=== PATIENT | male | born 1975 | race Caucasian/White ===

== ENCOUNTER 2016-10-02 12:07 | Emergency (ER) | payer SELFPAY ==
[~2016-10-02] VITALS: Ht 172.7 cm; Wt 68.3 kg
[2016-10-02 15:17] LABS: UA SPECIFIC GRAVITY <=1.005 (1.005-1.035); microscopic required? YES; urine erythrocyte TRACE (NEGATIVE)
[2016-10-02 15:20] LABS: BASOPHIL % 0.7 % (0-2); PLATELET COUNT 284 x10^3mcL (130-400); RED CELL DISTRIBUTION WIDTH 13.8 % (11.5-14.5)
[2016-10-02 15:26] LABS: AMPHETAMINE QUAL UR NONE DETECTED (NEG <=1000)
[2016-10-02 15:39] LABS: ALBUMIN 3.8 g/dL (3.4-5.0); ALKALINE PHOSPHATASE 68 U/L (46-116); ALT/SGPT 59 U/L (16-63); AST/SGOT 34 U/L (15-37); BILIRUBIN TOTAL 2.7 mg/dL (0.20-1.00); CALCIUM 9.8 mg/dL (8.5-10.1); CHLORIDE SERUM 95 mmol/L (98-107); CHOLESTEROL 177 mg/dL (<200); CREATININE SERUM 0.8 mg/dL (0.7-1.3); GFR1 > 60 mL/min; GLUCOSE SERUM 74 mg/dL (74-106); PHOSPHOROUS 3.8 mg/dL (2.5-4.9); SODIUM SERUM 133 mmol/L (136-145); T4(THYROXINE) 9.1 ug/dL (4.7-13.3); TOTAL PROTEIN, SERUM 7.7 g/dL (6.4-8.2)
[2016-10-02 15:41] LABS: HDL CHOLESTEROL 61 mg/dL (40-60)
[2016-10-02 15:42] LABS: POTASSIUM SERUM 2.9 mmol/L (3.5-5.1)
[2016-10-02 18:57] VITALS: BP 109/89
== END 2016-10-02 18:57 | disposition home or self-care (01) ==
LOC: ED 12:07
PROVIDERS: Emergency Medicine
DX: K59.00 Constipation, unspecified (principal); F32.9 Major depressive disorder, single episode, unspecified; E87.6 Hypokalemia; R63.4 Abnormal weight loss
CPT/HCPCS: J7030